=== PATIENT | female | born 1955 | race African-American/Black ===

== ENCOUNTER → 2017-02-21 | Day surgery (SDC) | payer OTHER ==
[~2017-02-21] MED LIST: ASPI81TA2 PO; FLUT1DIS3 IH; HYDR12.53 PO; HYDROmorphone 2 MG/ML VIAL IV PRN; IV RINGERS,LACTATED 1000ML 1,000 ML IV SCH; LIDOCAINE 1% 1 ML SYRINGE. ID PRN; LIDOCAINE 2% PF Vial for OR 5 ML VIAL. ONE; LOVA40TA2 PO; MORPHINE SULFATE 2 MG/ML DISP.SYRIN. IV PRN; OMEP40CA5 PO; ONDANSETRON PF 4 MG/2 ML VIAL. IV PRN; PROCHLORPERAZINE 10 MG/2 ML VIAL. IV PRN; PROPOFOL 20 ML IV ONE; PROVENTIL HFA6.7 GM IH; fentaNYL PF VIAL 100 MCG/2 ML VIAL IV PRN
[2017-02-21 09:37] VITALS: BP 147/64
--- NOTE | 2017-02-22 00:15 | CONS ---
DATE OF CONSULTATION: 02/21/2017 HISTORY OF PRESENT ILLNESS: This is a 61-year-old -[place] female whose past medical history is significant for reflux, colon polyps, hyperlipidemia, is seen for interval colonoscopy. She did have polyps approximately 10 years ago. Denies any melena or hematochezia. Bowel habits are regular without diarrhea or constipation at this time. Family history is unrevealing for colon polyps or colon cancer. She is otherwise without additional complaints. PAST MEDICAL HISTORY: Hyperlipidemia, colon polyps, reflux. PAST SURGICAL HISTORY: Carpal tunnel release, rotator cuff repairs. MEDICATIONS: Include albuterol, aspirin, Advair, hydrochlorothiazide, lovastatin, omeprazole. ALLERGIES: CEPHALOSPORINS, PENICILLINS. SOCIAL HISTORY: Nonsmoker, nondrinker. FAMILY HISTORY: Noncontributory. REVIEW OF SYSTEMS: Per records. PHYSICAL EXAMINATION: VITAL SIGNS: Temperature is 98, pulse 82, respirations 20. HEENT: Reveals normocephalic and atraumatic head. Pupils and extraocular movements not tested. Sclerae anicteric. NECK: Supple. LUNGS: Clear. CARDIOVASCULAR: Reveals S1, S2 without S3, S4 or appreciable murmur. ABDOMEN: Soft abdomen, normal bowel sounds, without appreciable hepatosplenomegaly. EXTREMITIES: Reveals no cyanosis, clubbing or edema. IMPRESSION: History of colonic polyps, colorectal screening is warranted at this time. Risks and benefits of procedure have been discussed. The patient is willing to proceed. ASHLEY BETANCOURT MD DR: RK/maddie JOB#: [id number] / [id number]
== END | disposition home or self-care (01) ==
LOC: ENDOS 07:27
PROVIDERS: ATTEND Internal Medicine Gastroenterology
DX: Z12.11 Encounter for screening for malignant neoplasm of colon (principal); K64.0 First degree hemorrhoids; K21.9 Gastro-esophageal reflux disease without esophagitis; E78.00 Pure hypercholesterolemia, unspecified; I10 Essential (primary) hypertension; J45.909 Unspecified asthma, uncomplicated; Z87.39 Personal history of other diseases of the musculoskeletal system and connective tissue
CPT/HCPCS: 45378; J2704